=== PATIENT | male | born 1930 | race Native Hawaiian/Other Pacific Islander ===

== ENCOUNTER 2017-12-19 15:43 | Outpatient (CLI) | payer OTHER ==
[2017-12-19 15:54] LABS: PLATELET COUNT 259 K/uL (142-355)
[2017-12-19 16:44] LABS: POTASSIUM 4.4 mmol/L (3.6-5.2)
== END 2017-12-19 19:23 | disposition home or self-care (01) ==
LOC: LAB 15:43
PROVIDERS: Internal Medicine Infectious Disease
DX: I70.235 Atherosclerosis of native arteries of right leg with ulceration of other part of foot (principal); Z79.2 Long term (current) use of antibiotics; Z45.2 Encounter for adjustment and management of vascular access device
CPT/HCPCS: 80048; 80202; 85027

== ENCOUNTER 2017-12-22 14:02 | Outpatient (CLI) | payer OTHER | END 2017-12-22 15:05 | disposition home or self-care (01) | LOC: LAB 14:02 | DX: I70.235 Atherosclerosis of native arteries of right leg with ulceration of other part of foot (principal); B96.5 Pseudomonas (aeruginosa) (mallei) (pseudomallei) as the cause of diseases classified elsewhere; Z45.2 Encounter for adjustment and management of vascular access device | CPT/HCPCS: 80202 ==

== ENCOUNTER 2017-12-26 13:12 | Outpatient (CLI) | payer OTHER ==
[2017-12-26 13:28] LABS: PLATELET COUNT 243 K/uL (142-355)
[2017-12-26 13:38] LABS: POTASSIUM 4.4 mmol/L (3.6-5.2)
== END 2017-12-26 19:39 | disposition home or self-care (01) ==
LOC: LAB 13:12
PROVIDERS: Internal Medicine Infectious Disease
DX: I70.235 Atherosclerosis of native arteries of right leg with ulceration of other part of foot (principal); Z79.2 Long term (current) use of antibiotics
CPT/HCPCS: 80048; 80202; 85027

== ENCOUNTER 2017-12-29 11:09 | Outpatient (CLI) | payer OTHER | END 2017-12-29 23:58 | disposition home or self-care (01) | LOC: LAB 11:09 | DX: Z79.2 Long term (current) use of antibiotics (principal) | CPT/HCPCS: 80202 ==